=== PATIENT | female | born 1990 | race Caucasian/White ===

== ENCOUNTER 2018-05-16 05:57 | Day surgery (SDC) | payer OTHER ==
[~2018-05-16] VITALS: Ht 162.6 cm; Wt 74.4 kg
[~2018-05-16 05:57] MED LIST: ALPR1 PO; CLON.5 PO; CLON1 PO; FAMO40 PO; HYDACE5 PO; Junel Fe 1.5-31 EACH PO; PRENATAL 19 TA1 EACH PO; PROM25 PO; Verotin-Gr Cap1 EACH; XULANE PATCH1 EACH TD
[2018-05-16] MEDS ORDERED: PROM25 (06:48)
== END 2018-05-16 11:02 | disposition home or self-care (01) ==
LOC: ORSCMMR 05:57 → ORD 07:30 → ORSCMMR 11:02
PROVIDERS: Surgery
PROC: 06BY0ZC Excision of Hemorrhoidal Plexus, Open Approach (ICD-10-PCS; principal; 2018-05-16 07:30)
DX: K64.2 Third degree hemorrhoids (principal); K62.5 Hemorrhage of anus and rectum; Z87.891 Personal history of nicotine dependence
CPT/HCPCS: 88304; J2250; J3010; J7120

== ENCOUNTER 2019-10-28 06:07 | Inpatient (IN) | payer OTHER ==
[~2019-10-28] VITALS: Ht 162.6 cm; Wt 100.2 kg
[~2019-10-28 06:07] MED LIST changes: +PROM25
[2019-10-28] MEDS ORDERED: PRENATAL TABLE1 EAC2 PO (06:52)
[2019-10-28 06:55] LABS: BASOPHILS ABSOLUTE AUTO 0.03 K/mm3 (0.00-0.23); BASOPHILS PERCENT AUTO 0 % (0-2); EOSINOPHILS ABSOLUTE AUTO 0.06 K/mm3 (0.00-0.68); EOSINOPHILS PERCENT AUTO 1 % (0-6); Hemoglobin 11.2 g/dL (11.5-16.0); IMMATURE GRAN ABSOLUTE AUTO 0.05 K/mm3 (0.00-0.10); IMMATURE GRAN PERCENT AUTO 0 % (0-1); LYMPHOCYTES ABSOLUTE AUTO 2.08 K/mm3 (0.84-5.20); LYMPHOCYTES PERCENT AUTO 19 % (21-46); MONOCYTES ABSOLUTE AUTO 0.82 K/mm3 (0.16-1.47); MONOCYTES PERCENT AUTO 7 % (4-13); Mean Corpuscular HGB 29.9 pg (26.0-34.0); Mean Corpuscular HGB Conc 32.9 g/dL (31.5-36.5); Mean Corpuscular Volume 91 fL (80-100); Mean Platelet Volume 10.3 fL (9.1-12.4); NEUTROPHILS PERCENT AUTO 73 % (41-73); Platelet Count 210 K/mm3 (150-400); RDW Coefficient Variation 14.4 % (11.7-14.2); RDW Standard Deviation 47.3 fL (35.1-46.3); Red Blood Cell Count 3.75 M/mm3 (3.80-5.20); White Blood Cell Count 11.14 K/mm3 (4.00-11.30)
--- NOTE | 2019-10-28 09:01 | NUR ---
Precipitate in IV observed when giving IV zofran. Ampicillin dose had been infusing but was clamped off before giving zofran, and IV was flushed with 3ml NS. Tubing to LR was pinched off near Y site while pushing the zofran to prevent zofran from going up that tubing. Precipatate observed in saline lock part of IV tubing (looked like small transucent snowflakes) when half of zofran was pushed. Med drawn back until blood came into syringe, and small amount of precipitate noted in syringe. Second nurse also observed precipitate and went to get a different vial of zofran (in case something was wrong with first one). Meanwhile, this nurse thoroughly flushed IV with LR by opening the roller clamp wide (ampicillin fully closed off). Next zofran preceded by 5ml flush. No precipate noted though push until last 0.25ml. This was drawn back slightly until blood observed in saline lock tubing, then was followed by 5ml NS flush and more LR via roller clamp. Ampicillin then resumed. Upon investigation, Y site incompatability exists between zofran and ampicillin, causing precipitate. Will notify clinical coordinator and monitor patient for any possible adverse effects. EARLINE RN
[2019-10-29 04:46] LABS: BASOPHILS ABSOLUTE AUTO 0.03 K/mm3 (0.00-0.23); BASOPHILS PERCENT AUTO 0 % (0-2); EOSINOPHILS ABSOLUTE AUTO 0.03 K/mm3 (0.00-0.68); EOSINOPHILS PERCENT AUTO 0 % (0-6); Hematocrit 29.6 % (33.0-51.0); Hemoglobin 9.6 g/dL (11.5-16.0); IMMATURE GRAN ABSOLUTE AUTO 0.05 K/mm3 (0.00-0.10); IMMATURE GRAN PERCENT AUTO 0 % (0-1); LYMPHOCYTES ABSOLUTE AUTO 2.27 K/mm3 (0.84-5.20); LYMPHOCYTES PERCENT AUTO 19 % (21-46); MONOCYTES ABSOLUTE AUTO 1.19 K/mm3 (0.16-1.47); MONOCYTES PERCENT AUTO 10 % (4-13); Mean Corpuscular HGB 29.5 pg (26.0-34.0); Mean Corpuscular HGB Conc 32.4 g/dL (31.5-36.5); Mean Corpuscular Volume 91 fL (80-100); Mean Platelet Volume 10.3 fL (9.1-12.4); NEUTROPHILS ABSOLUTE AUTO 8.56 K/mm3 (1.96-9.15); NEUTROPHILS PERCENT AUTO 71 % (41-73); Platelet Count 183 K/mm3 (150-400); RDW Coefficient Variation 14.3 % (11.7-14.2); Red Blood Cell Count 3.25 M/mm3 (3.80-5.20); White Blood Cell Count 12.13 K/mm3 (4.00-11.30)
[2019-10-29] MEDS ORDERED: IBUP800 PO (13:06)
== END 2019-10-29 18:15 | disposition home or self-care (01) | DRG 807 ==
LOC: OBS 06:07 → BC 06:08 → OBS 06:09 → BC 06:10
PROVIDERS: ADMIT Nurse Practitioner Obstetrics & Gynecology
PROC: 10E0XZZ Delivery of Products of Conception, External Approach (ICD-10-PCS; principal; 2019-10-28)
PROC: 3E0R3BZ Introduction of Anesthetic Agent into Spinal Canal, Percutaneous Approach (ICD-10-PCS; 2019-10-28)
PROC: 10H07YZ Insertion of Other Device into Products of Conception, Via Natural or Artificial Opening (ICD-10-PCS; 2019-10-28)
PROC: 0HQ9XZZ Repair Perineum Skin, External Approach (ICD-10-PCS; 2019-10-28)
DX: O99.824 Streptococcus B carrier state complicating childbirth (principal); Z37.0 Single live birth; O32.6XX0 Maternal care for compound presentation, not applicable or unspecified; Z3A.40 40 weeks gestation of pregnancy; O70.0 First degree perineal laceration during delivery
CPT/HCPCS: 36415; 51702; 85025; 86900; 86901; J0290; J1885; J2001; J2210; J2405; J2590; J3010; J7030; J7120

== ENCOUNTER 2020-08-09 07:16 | Day surgery (SDC) | payer OTHER ==
[~2020-08-09] VITALS: Ht 162.6 cm; Wt 92.8 kg
[~2020-08-09 07:16] MED LIST changes: +IBUP800 PO; +PRENATAL TABLE1 EAC2 PO
== END 2020-08-09 10:21 | disposition home or self-care (01) ==
LOC: ORSCSDS 07:16
PROVIDERS: Obstetrics & Gynecology
PROC: 0UT74ZZ Resection of Bilateral Fallopian Tubes, Percutaneous Endoscopic Approach (ICD-10-PCS; principal; 2020-08-09 08:30)
DX: Z30.2 Encounter for sterilization (principal); N80.3 Endometriosis of pelvic peritoneum; Z87.891 Personal history of nicotine dependence; K21.9 Gastro-esophageal reflux disease without esophagitis; E66.01 Morbid (severe) obesity due to excess calories; Z68.35 Body mass index [BMI] 35.0-35.9, adult
CPT/HCPCS: 88302; J0171; J0690; J1100; J1885; J2250; J2405; J2704; J2765; J3010; J7120